=== PATIENT | male | born 1950 | race Caucasian/White ===

== ENCOUNTER 2019-01-26 09:42 | Observation (INO) ==
[2019-01-26 10:39] LABS: Basophils % 0.4 % (0.0-0.8); Eosinophils # 0.1 10*3/uL (0.0-0.87); Eosinophils % 1.7 % (0.00-10.9); Hematocrit 33.6 VOL% (42.0-52.0); Hemoglobin 10.8 GM/DL (14.0-18.0); Immature Granulocytes % 0.4 %; Immature Granulocytes Absolute 0.03 #; Lymphocytes # 0.9 10*3/uL (1.4-4.0); Lymphocytes % 12.3 % (21.2-54.2); Mean Corpuscular HGB Conc 32.1 GM/DL (32-36); Mean Corpuscular Volume 100.6 FL (87-102); Mean Platelet Volume 9.6 FL (9.6-12.0); Monocytes % 6.1 % (1.7-12.7); NRBC # 0.02 10*3/uL; Neutrophils % 79.1 % (38.7-73.9); Platelet Count 114 T/CUMM (130-400); Red Blood Count 3.34 MC/CUMM (3.8-5.5); Red Cell Distribution Width 13.9 % (9.3-17.3); White Blood Count 7.1 T/CUMM (4-12)
[2019-01-26 10:49] LABS: INR 0.9; PT Patient Result 10.1 SECS
[2019-01-26 11:06] LABS: Alanine Aminotransferase 19 U/L (16-61); Albumin 3.8 G/DL (3.4-5.0); Alkaline Phosphatase 70 U/L (45-117); Aspartate Amino Transferase 11 U/L (0-37); Blood Urea Nitrogen 48 MG/DL (7-18); Calcium 8.7 MG/DL (8.5-10.1); Glucose 125 MG/DL (74-106); Osmolality,Calculated 296.1 MOS/KG (273-304); Total Protein 6.9 G/DL (6.4-8.3)
[2019-01-26 11:14] LABS: Risk Ratio 3.73; VLDL CHOLESTEROL 33.4 MG/DL
[2019-01-26 12:03] LABS: Apearance,Urine CLEAR (Clear); Bilirubin,Urine Negative (Negative); Blood, Urine Small mg/dL (Negative); Glucose,Urine (UA) Negative (Negative); Ketones,Urine Negative (Negative); Nitrite,Urine Negative (Negative); Protein,Urine Negative; RBC,Urine <1 /HPF (0-4); Urine Color Straw (Yellow); Urine Specific Gravity 1.009 (1.001-1.035); Urine Urobilinogen < 2.0 EU/DL (0.2-1.0)
[2019-01-26 12:16] LABS: Barbiturates Screen,Urine Negative (Negative); Benzodiazepines Screen,Urine Negative (Negative); Cannabinoid Screen,Urine Positive (Negative); Opiate Screen,Urine Negative (Negative); Phencyclidine Screen,Urine Negative (Negative)
[2019-01-26] MEDS ORDERED: ACETAMINOPHEN 325 MG TABLET PO PRN (13:09)
[2019-01-26] MEDS ORDERED: ONDANSETRON 4 MG/2 ML VIAL IV PRN (13:09)
[2019-01-26 14:02] LABS: Thyroid Stimulating Hormone 2.04 uIU/ml (0.358-3.74)
[2019-01-26] MEDS ORDERED: hydrALAZINE 20 MG/1 ML VIAL IV PRN (15:55)
[2019-01-26] MEDS ORDERED: ASPIRIN CHEW 81 MG TABLET PO SCH (16:00)
[2019-01-26] MEDS: ENOXAPARIN 30 MG/0.3 ML SYRINGE SUBCUT SCH (16:17)
[2019-01-26] MEDS: SODIUM CHLORIDE 0.45% 1,000 ML IV SCH (16:37)
[2019-01-26] MEDS: ESCITALOPRAM 10 MG TABLET PO SCH (21:00)
[2019-01-26] MEDS: ZALEPLON 5 MG CAPSULE PO SCH (21:01)
[2019-01-26] MEDS: ROSUVASTATIN 20 MG TABLET PO SCH (21:01)
[2019-01-27] MEDS: SODIUM CHLORIDE 0.45% 1,000 ML IV SCH ×2 (01:06→14:15)
[2019-01-27 02:51] LABS: Basophils # 0.1 10*3/uL (0.0-0.2); Basophils % 0.7 % (0.0-0.8); Eosinophils # 0.2 10*3/uL (0.0-0.87); Eosinophils % 2.8 % (0.00-10.9); Hematocrit 34.2 VOL% (42.0-52.0); Hemoglobin 10.6 GM/DL (14.0-18.0); Immature Granulocytes % 0.5 %; Immature Granulocytes Absolute 0.04 #; Lymphocytes # 2.2 10*3/uL (1.4-4.0); Mean Corpuscular Volume 101.2 FL (87-102); Mean Platelet Volume 9.6 FL (9.6-12.0); Monocytes % 8.2 % (1.7-12.7); NRBC # 0.03 10*3/uL; Neutrophils % 58.8 % (38.7-73.9); Platelet Count 103 T/CUMM (130-400); Red Blood Count 3.38 MC/CUMM (3.8-5.5); White Blood Count 7.5 T/CUMM (4-12)
[2019-01-27 03:01] LABS: Calcium 8.7 MG/DL (8.5-10.1); Osmolality,Calculated 291.3 MOS/KG (273-304)
[2019-01-27] MEDS ORDERED: METOPROLOL SUCCINATE XL 50 MG TABLET PO SCH (09:00)
[2019-01-27] MEDS ORDERED: LISINOPRIL 20 MG TABLET PO SCH (09:00)
[2019-01-27] MEDS: ESCITALOPRAM 10 MG TABLET PO SCH ×2 (09:29→20:41)
[2019-01-27] MEDS: TAMSULOSIN 0.4 MG CAPSULE PO SCH (09:29)
[2019-01-27] MEDS: PANTOPRAZOLE 40 MG TABLET PO SCH (09:29)
[2019-01-27] MEDS: ASPIRIN CHEW 81 MG TABLET PO SCH (09:30)
[2019-01-27] MEDS: ENOXAPARIN 30 MG/0.3 ML SYRINGE SUBCUT SCH (17:28)
[2019-01-27] MEDS: ZALEPLON 5 MG CAPSULE PO SCH (20:41)
[2019-01-27] MEDS: ROSUVASTATIN 20 MG TABLET PO SCH (20:41)
[2019-01-27] MEDS: APIXABAN 2.5 MG TABLET PO SCH (20:41)
[2019-01-28 08:16] VITALS: BP 138/75
[2019-01-28] MEDS: TAMSULOSIN 0.4 MG CAPSULE PO SCH (08:44)
[2019-01-28] MEDS: ASPIRIN CHEW 81 MG TABLET PO SCH (08:44)
[2019-01-28] MEDS: APIXABAN 2.5 MG TABLET PO SCH (08:45)
[2019-01-28] MEDS: PANTOPRAZOLE 40 MG TABLET PO SCH (08:45)
[2019-01-28] MEDS: ESCITALOPRAM 10 MG TABLET PO SCH (08:50)
== END 2019-01-28 10:10 | disposition home or self-care (01) ==
LOC: N.EDINP 09:42 → N.ED 09:42 → N.4E 12:55
PROVIDERS: ADMIT Internal Medicine; ATTEND Internal Medicine

== ENCOUNTER 2019-04-05 16:36 | Inpatient (IN) ==
[2019-04-05 18:16] LABS: Basophils % 0.4 % (0.0-0.8); Eosinophils # 0.3 10*3/uL (0.0-0.87); Eosinophils % 3.4 % (0.00-10.9); Hematocrit 29.5 VOL% (42.0-52.0); Hemoglobin 9.2 GM/DL (14.0-18.0); Immature Granulocytes % 0.4 %; Immature Granulocytes Absolute 0.03 #; Lymphocytes # 1.5 10*3/uL (1.4-4.0); Lymphocytes % 19.4 % (21.2-54.2); Mean Corpuscular HGB Conc 31.2 GM/DL (32-36); Mean Corpuscular Volume 105.7 FL (87-102); Mean Platelet Volume 9.6 FL (9.6-12.0); Monocytes % 8.9 % (1.7-12.7); Neutrophils % 67.5 % (38.7-73.9); Platelet Count 155 T/CUMM (130-400); Red Blood Count 2.79 MC/CUMM (3.8-5.5); Red Cell Distribution Width 14.4 % (9.3-17.3); White Blood Count 7.9 T/CUMM (4-12)
[2019-04-05 18:34] LABS: Alanine Aminotransferase 18 U/L (16-61); Albumin 3.7 G/DL (3.4-5.0); Alkaline Phosphatase 74 U/L (45-117); Aspartate Amino Transferase 15 U/L (0-37); Bilirubin,Total < 0.39 MG/DL (0.2-1.0); Blood Urea Nitrogen 57 MG/DL (7-18); Calcium 8.7 MG/DL (8.5-10.1); Glucose 91 MG/DL (74-106); Total Protein 7.5 G/DL (6.4-8.3)
[2019-04-05] MEDS ORDERED: SODIUM CHLORIDE 0.9% 1,000 ML IV SCH (22:27)
[2019-04-05] MEDS ORDERED: ONDANSETRON 4 MG/2 ML VIAL IV PRN (22:27)
[2019-04-05] MEDS ORDERED: DOCUSATE SODIUM 100 MG CAPSULE PO PRN (22:27)
[2019-04-05] MEDS ORDERED: ACETAMINOPHEN 325 MG TABLET PO PRN (22:27)
[2019-04-06] MEDS: ZALEPLON 5 MG CAPSULE PO SCH ×2 (00:30→21:00)
[2019-04-06] MEDS: ESCITALOPRAM 10 MG TABLET PO SCH ×3 (00:30→21:00)
[2019-04-06] MEDS: ROSUVASTATIN 20 MG TABLET PO SCH ×2 (00:30→21:00)
[2019-04-06] MEDS: APIXABAN 2.5 MG TABLET PO SCH ×3 (00:30→21:00)
[2019-04-06 05:05] LABS: Basophils % 0.3 % (0.0-0.8); Eosinophils # 0.3 10*3/uL (0.0-0.87); Eosinophils % 4.3 % (0.00-10.9); Hematocrit 26.9 VOL% (42.0-52.0); Hemoglobin 8.6 GM/DL (14.0-18.0); Immature Granulocytes % 0.3 %; Immature Granulocytes Absolute 0.02 #; Lymphocytes # 1.9 10*3/uL (1.4-4.0); Lymphocytes % 27.7 % (21.2-54.2); Mean Corpuscular Volume 104.7 FL (87-102); Mean Platelet Volume 9.3 FL (9.6-12.0); Monocytes % 10.7 % (1.7-12.7); NRBC # 0.02 10*3/uL; Neutrophils % 56.7 % (38.7-73.9); Platelet Count 136 T/CUMM (130-400); Red Blood Count 2.57 MC/CUMM (3.8-5.5); Red Cell Distribution Width 14.5 % (9.3-17.3); White Blood Count 6.7 T/CUMM (4-12)
[2019-04-06 05:14] LABS: INR 0.9; PT Patient Result 10.1 SECS (9.6-12.2); Partial Thromboplastin Time 29.6 SECS (20.8-36.0)
[2019-04-06 05:26] LABS: Calcium 8.7 MG/DL (8.5-10.1); Ferritin 14.6 ng/ml (26-388); Osmolality,Calculated 300.8 MOS/KG (273-304)
[2019-04-06 05:34] LABS: Risk Ratio 3.88; VLDL CHOLESTEROL 36.2 MG/DL
[2019-04-06 05:41] LABS: Folate 7.7 NG/ML (5.4-24.0); Vitamin B12 263 PG/ML (211-911)
[2019-04-06 06:01] LABS: Sedimentation Rate-Westergren 32 MM/HR (0-20)
[2019-04-06] MEDS: TAMSULOSIN 0.4 MG CAPSULE PO SCH (09:09)
[2019-04-06] MEDS: METOPROLOL SUCCINATE XL 25 MG TABLET PO SCH (09:09)
[2019-04-06] MEDS: ASPIRIN 325 MG TABLET PO SCH (09:09)
[2019-04-07 07:35] LABS: Basophils % 0.5 % (0.0-0.8); Eosinophils # 0.3 10*3/uL (0.0-0.87); Eosinophils % 4.1 % (0.00-10.9); Hematocrit 29.9 VOL% (42.0-52.0); Hemoglobin 9.3 GM/DL (14.0-18.0); Immature Granulocytes % 0.3 %; Immature Granulocytes Absolute 0.02 #; Lymphocytes # 1.6 10*3/uL (1.4-4.0); Lymphocytes % 25.9 % (21.2-54.2); Mean Corpuscular HGB Conc 31.1 GM/DL (32-36); Mean Corpuscular Volume 104.9 FL (87-102); Mean Platelet Volume 9.1 FL (9.6-12.0); Monocytes % 9.1 % (1.7-12.7); NRBC # 0.02 10*3/uL; Neutrophils % 60.1 % (38.7-73.9); Platelet Count 148 T/CUMM (130-400); Red Blood Count 2.85 MC/CUMM (3.8-5.5); Red Cell Distribution Width 14.3 % (9.3-17.3); White Blood Count 6.1 T/CUMM (4-12)
[2019-04-07 07:38] LABS: Hemoglobin A1 (Alkaline) 97.3 % (96.5-98.5); Hemoglobin A2 (Alkaline) 2.7 % (1.5-3.5)
[2019-04-07 07:51] LABS: Calcium 8.5 MG/DL (8.5-10.1); Osmolality,Calculated 295.4 MOS/KG (273-304)
[2019-04-07] MEDS: APIXABAN 2.5 MG TABLET PO SCH (09:33)
[2019-04-07] MEDS: METOPROLOL SUCCINATE XL 25 MG TABLET PO SCH (09:33)
[2019-04-07] MEDS: TAMSULOSIN 0.4 MG CAPSULE PO SCH (09:33)
[2019-04-07] MEDS: ASPIRIN 325 MG TABLET PO SCH (09:33)
[2019-04-07] MEDS: ESCITALOPRAM 10 MG TABLET PO SCH (09:33)
[2019-04-07 12:04] VITALS: BP 146/94
== END 2019-04-07 14:48 | disposition home or self-care (01) | DRG 65 ==
LOC: N.ED 16:36 → N.EDINP 16:36 → N.4E 21:09
PROVIDERS: ADMIT Internal Medicine; ATTEND Internal Medicine